=== PATIENT | male | born 1970 | race African-American/Black ===

== ENCOUNTER 2019-11-11 11:01 | Emergency (ER) | payer OTHER ==
--- NOTE | 2019-11-11 11:17 | ER Document Report ---
ED Medical Screen (RME) - General Chief Complaint: Dizziness Stated Complaint: DIZZINESS Time Seen by Provider: 11/11/19 11:13 Mode of Arrival: Ambulatory Information source: Patient Notes: Patient presents complaining of dizziness in which she feels off balance for the past 3 weeks. Patient states symptoms have been off and on. Patient denies any headache pain or chest pain symptoms. Patient denies any nausea or vomiting. Patient denies any significant underlying medical history. I have greeted and performed a rapid initial assessment of this patient. A comprehensive ED assessment and evaluation of the patient, analysis of test results and completion of the medical decision making process will be conducted by additional ED providers. - Related Data Allergies/Adverse Reactions: No Known Allergies Allergy (Verified 11/11/19 11:13) Physical Exam - Vital signs Vitals: Temp Pulse Resp BP Pulse Ox 98.4 F 92 18 143/92 H 95 11/11/19 11:05 11/11/19 11:05 11/11/19 11:05 11/11/19 11:05 11/11/19 11:05 - Neurological Neuro grossly intact: Yes Cognition: Normal [place] Coma Scale Eye Opening: Spontaneous [place] Coma Scale Verbal: Oriented [place] Coma Scale Motor: Obeys Commands [place] Coma Scale Total: 15 Course - Vital Signs Vital signs: Temp Pulse Resp BP Pulse Ox 98.4 F 92 18 143/92 H 95 11/11/19 11:05 11/11/19 11:05 11/11/19 11:05 11/11/19 11:05 11/11/19 11:05
[2019-11-11 11:43] LABS: ABSOLUTE BASOPHILS # (AUTO) 0.1 10^3/uL (0.0-0.2); ABSOLUTE EOSINOPHILS # (AUTO) 0.3 10^3/uL (0.0-0.6); ABSOLUTE MONOCYTES (AUTO) 0.4 10^3/uL (0.1-1.4); ABSOLUTE NEUT (AUTO) 3.7 10^3/uL (1.7-8.2); EOSINOPHILS % (AUTO) 5.6 % (0-6); HEMOGLOBIN 14.9 g/dL (13.5-17.0); LYMPHOCYTES % (AUTO) 18.5 % (13-45); MEAN CORPUSCULAR HEMOGLOBIN 30.1 pg (27.0-33.4); MEAN CORPUSCULAR HGB CONC 33.7 g/dL (32.0-36.0); MEAN CORPUSCULAR VOLUME 89 fl (80-97); MONOCYTES % (AUTO) 7.8 % (3-13); PLATELET COUNT 202 10^3/uL (150-450); RED BLOOD COUNT 4.94 10^6/uL (4.35-5.55); RED CELL DISTRIBUTION WIDTH 12.3 % (11.5-14.0); SEGMENTED NEUTROPHILS % (AUTO) 67.1 % (42-78); TOTAL CELLS COUNTED % (AUTO) 100 %; WHITE BLOOD COUNT 5.5 10^3/uL (4.0-10.5)
[2019-11-11 11:58] LABS: APPEARANCE,URINE CLEAR; BILIRUBIN,URINE NEGATIVE (NEGATIVE); COLOR,URINE YELLOW; GLUCOSE, URINE NEGATIVE (NEGATIVE); KETONES,URINE NEGATIVE (NEGATIVE); LEUKOCYTE ESTERASE,URINE NEGATIVE (NEGATIVE); NITRITE,URINE NEGATIVE (NEGATIVE); PROTEIN,URINE NEGATIVE (NEGATIVE); URINE SPECIFIC GRAVITY 1.017
[2019-11-11 12:07] LABS: ALBUMIN 4.4 g/dL (3.5-5.0); ALKALINE PHOSPHATASE 60 U/L (38-126); ANION GAP 8 (5-19); ASPARTATE AMINO TRANSFERASE 27 U/L (17-59); BILIRUBIN,DIRECT 0.2 mg/dL (0.0-0.4); BILIRUBIN,TOTAL 1.8 mg/dL (0.2-1.3); BLOOD UREA NITROGEN 17 mg/dL (7-20); CALCIUM 9.8 mg/dL (8.4-10.2); CARBON DIOXIDE 26 mmol/L (22-30); CHLORIDE 107 mmol/L (98-107); GLUCOSE 100 mg/dL (75-110); POTASSIUM 4.5 mmol/L (3.6-5.0); TOTAL PROTEIN 7.6 g/dL (6.3-8.2)
--- NOTE | 2019-11-11 15:12 | ER Document Report ---
ED Dizziness/Weakness - General Chief Complaint: Dizziness Stated Complaint: DIZZINESS Time Seen by Provider: 11/11/19 11:13 Mode of Arrival: Ambulatory Notes: HPI: 48-year-old male who presents today stating 2 to 3 weeks of some intermittent "off balance". Denies any headache, double or blurry vision, weakness or numbness, chest pain, palpitations, nausea, vomiting, fevers, tinnitus, recent upper respiratory tract infections, or history of this previously. No head trauma or neck pain. ROS: See HPI All other review of systems reviewed and otherwise negative Reviewed vital signs and nursing note as charted by RN. PHYSICAL EXAM: CONSTITUTIONAL: Alert and oriented and responds appropriately to questions. Well-appearing; well-nourished HEAD: Normocephalic; atraumatic EYES: PERRL; full extraocular range of motion; no nystagmus ENT: Normal nose; no rhinorrhea; moist mucous membranes; pharynx without lesions noted NECK: Supple without meningismus; no carotid bruit; non-tender; no cervical lymphadenopathy, no masses CARD: Regular rate and rhythm; no murmurs; symmetric distal pulses RESP: Normal chest excursion without splinting or tachypnea; breath sounds clear and equal bilaterally ABD/GI: Normal bowel sounds; non-distended; soft, non-tender BACK: The back appears normal and is non-tender to palpation EXT: Normal ROM in all joints; non-tender to palpation; no edema SKIN: No acute lesions noted NEURO: CN 2-12 intact; no obvious past-pointing; no nystagmus 5/5 bilateral upper and lower extremity strength with sensation intact to light touch; patient possibly has some slight hyperreflexia bilaterally. No weakness to the lower extremities. I got up with the patient and walked him around the room. I do not detect any obvious gait disturbance. Patient is able to do a standing squat without any obvious weakness. PSYCH: The patient's mood and manner are appropriate. Grooming and personal hygiene are appropriate. - Related Data Allergies/Adverse Reactions: No Known Allergies Allergy (Verified 11/11/19 11:13) Past Medical History - General Information source: Patient - Social History Smoking Status: Never Smoker Family History: Reviewed & Not Pertinent Patient has homicidal ideation: No Pulmonary Medical History: Reports: Hx Asthma - childhood GI Medical History: Reports: Hx Gastroesophageal Reflux Disease Physical Exam - Vital signs Vitals: Temp Pulse Resp BP Pulse Ox 98.4 F 92 18 143/92 H 95 11/11/19 11:05 11/11/19 11:05 11/11/19 11:05 11/11/19 11:05 11/11/19 11:05 Course - Re-evaluation Re-evalutation: Given the history and physical of mild gait disturbance, with no focal deficits currently, with no headaches or chest pain, will obtain cardiac panel, electrolyte evaluation, and obtain an MRI to evaluate for the possibility of a small posterior stroke. I do believe subarachnoid hemorrhage or infection to be unlikely. EKG shows a rate of 79, normal sinus rhythm, normal axis, no ST elevation or depression. 11/11/19 15:11 Measuring as recorded. No change in exam. 11/11/19 16:49 MRI as recorded. No change in exam. I was talking with the patient about discharge and he states now that he has had this progressively bilaterally worsening only to the lower extremities for "a few months". Patient states he has been to multiple emergency rooms. He states it is worsening. I walked the patient again and I do not detect any obvious weakness. Patient's initial exam did have some slight hyperreflexia. Patient states that he is uncomfortable going home. He states during all these visits he has never had an MRI of the spine. On back exam I do not detect any obvious swelling, erythema, or step- offs of the spine. I have called and spoken with the lab support service tech. I explained that I believe we need to do an MRI of the entire spine including the cervical, thoracic, and lumbar. 11/11/19 18:49 Extensive MRI imaging of the cervical, thoracic, and lumbar spine as recorded. Patient has had no recent infections or fever. Patient is walking with no apparent weakness. I do believe transverse myelitis, Guyon Faith, or other etiology currently to be unlikely. Patient will be discharged home with strict return precautions and follow-up with the primary care physician and neurologist. - Vital Signs Vital signs: Temp Pulse Resp BP Pulse Ox 97.8 F 58 L 14 144/87 H 100 11/11/19 17:20 11/11/19 17:20 11/11/19 17:20 11/11/19 17:20 11/11/19 17:20 - Laboratory Result Diagrams: 11/11/19 11:19 11/11/19 11:19 Laboratory results interpreted by me: 11/11/19 11/11/19 11:19 11:19 Total Bilirubin 1.8 H Urine Urobilinogen 2.0 H Discharge - Discharge Clinical Impression: Gait abnormality Condition: Good Disposition: HOME, SELF-CARE Additional Instructions: Come back immediately for any worsening gait disturbance, weakness, fever, swelling of the legs, back or chest pain, headache or blurry vision, or any other acute problems. Please follow-up with your primary care physician and possibly the neurologist that we have discussed. Prescriptions: Meclizine HCl 25 mg PO Q8H #12 tablet Referrals: NEUROLOGY [Provider Group] - Follow up as needed DERRICK FLORES MD [NO LOCAL MD] - Follow up as needed
--- NOTE | 2019-11-11 16:16 | RADIOLOGY REPORT (SQ) ---
EXAM DESCRIPTION: MRI HEAD WITHOUT IMAGES COMPLETED DATE/TIME: 11/11/2019 4:00 pm REASON FOR STUDY: 17; Vertigo like symptoms COMPARISON: None. TECHNIQUE: Multiplanar imaging includes non-contrasted T1, T2, FLAIR, and diffusion with ADC map seq uences. Images stored on PACS. LIMITATIONS: None. FINDINGS: ANATOMY: No anomalies. Normal vascular flow voids. Pituitary fossa normal. CSF SPACES: Normal in size and contour. No hemorrhage. CEREBRUM: Sulci and gyri normal in size and contour. Normal white matter signal on FLAIR imaging. No evidence of hemorrhage, mass, or extraaxial fluid collection. POSTERIOR FOSSA: No signal alteration. No hemorrhage. No edema, masses or mass effect. Internal miles tory canals, cerebello-pontine angles, mastoids normal. DIFFUSION IMAGING: Negative for acute or sub-acute infarction. ORBITS: No masses. Globes normal. PARANASAL SINUSES: No fluid levels. Mucosa normal. OTHER: No other significant finding. IMPRESSION: NORMAL MRI OF THE BRAIN WITHOUT INTRAVENOUS GADOLINIUM CONTRAST. EVIDENCE OF ACUTE STROKE: NO. TECHNICAL DOCUMENTATION: JOB ID: [id number] [employer]- All Rights Reserved Reading location - IP/workstation name: [id number]
--- NOTE | 2019-11-11 18:41 | RADIOLOGY REPORT (SQ) ---
EXAM DESCRIPTION: MRI LUMBAR SPINE WITHOUT IMAGES COMPLETED DATE/TIME: 11/11/2019 6:27 pm REASON FOR STUDY: 18; bilateral leg weakness COMPARISON: None. TECHNIQUE: Sagittal and Axial imaging includes T1, T2, STIR and gradient echo sequences. LIMITATIONS: None. FINDINGS: VISUALIZED UPPER ABDOMEN: Limited evaluation. No acute or suspicious findings suggested. SEGMENTATION: No transitional anatomy. The lowest well-developed disc space is labeled L5-S1. ALIGNMENT: Anatomic. VERTEBRAE: Intact. BONE MARROW: Normal. No marrow replacement or reactive changes. DISC SIGNAL: Normal. No significant abnormal signal or loss of height. POSTERIOR ELEMENTS: Generally intact. No pars defect evident. HARDWARE: None in the spine. CORD AND CONUS: Normal in size and signal intensity. Conus at the appropriate level. SOFT TISSUES: No aortic aneurysm seen. No bulky retroperitoneal adenopathy or mass. No paraspinal mas s or fluid. L1-L2: No significant spinal stenosis or exit foraminal stenosis. L2-L3: No significant spinal stenosis or exit foraminal stenosis. L3-L4: No significant spinal stenosis or exit foraminal stenosis. L4-L5: No significant spinal stenosis or exit foraminal stenosis. L5-S1: No significant spinal stenosis or exit foraminal stenosis. LOWER THORACIC: Incompletely imaged. No stenosis seen. SACRUM: Visualized upper sacrum intact. OTHER: No other significant findings. IMPRESSION: NORMAL MRI LUMBAR SPINE. TECHNICAL DOCUMENTATION: JOB ID: [id number] 2010 [employer] All Rights Reserved Reading location - IP/workstation name: [email or web address]
--- NOTE | 2019-11-11 18:44 | RADIOLOGY REPORT (SQ) ---
EXAM DESCRIPTION: MRI CERVICAL SPINE WITHOUT IMAGES COMPLETED DATE/TIME: 11/11/2019 6:27 pm REASON FOR STUDY: 17; bilateral leg weakness COMPARISON: None. TECHNIQUE: Sagittal and Axial imaging includes T1, T2, STIR and gradient echo sequences. LIMITATIONS: None. FINDINGS: ALIGNMENT: Normal. VERTEBRAE: Intact. BONE MARROW: Normal. No marrow replacement or reactive changes. DISCS: Diffuse decreased T2 weighted intervertebral disc signal HARDWARE: None in the spine. CORD AND BASE OF BRAIN: Normal in size and signal intensity. SOFT TISSUES: No soft tissue masses. C1-C2: No significant spinal stenosis. C2-C3: No significant central or foraminal stenosis. C3-C4: Minimal posterior disc bulging is present. No central stenosis. Mild bilateral foraminal grant rowing. C4-C5: No significant spinal stenosis or exit foraminal stenosis. C5-C6: Mild diffuse posterior disc bulging partially effaces the ventral thecal sac and abuts the sammy tral cord without cord flattening or abnormal intrinsic cord signal. Borderline central stenosis. H igh-grade right, moderate left foraminal narrowing from facet and uncovertebral hypertrophy C6-C7: No significant central or foraminal stenosis C7-T1: No significant central or foraminal stenosis UPPER THORACIC: Incompletely imaged. No significant spinal stenosis or exit foraminal stenosis. OTHER: No other significant finding. IMPRESSION: Degenerative disc changes most pronounced C5-6. No abnormal intrinsic cervical cord signal worrisome for edema or myelomalacia TECHNICAL DOCUMENTATION: JOB ID: [id number] 2010 [employer]- All Rights Reserved Reading location - IP/workstation name: [id number]
--- NOTE | 2019-11-11 18:44 | RADIOLOGY REPORT (SQ) ---
EXAM DESCRIPTION: MRI THORACIC SPINE WITHOUT IMAGES COMPLETED DATE/TIME: 11/11/2019 6:27 pm REASON FOR STUDY: 17; bilateral leg weakness COMPARISON: None. TECHNIQUE: Sagittal and Axial imaging includes T1, T2, STIR and gradient echo sequences. LIMITATIONS: None. FINDINGS: LOCALIZER: No worrisome findings. ALIGNMENT: Normal. VERTEBRAE: Intact. BONE MARROW: Normal. No marrow replacement or reactive changes. Incidental hemangioma in the T8 vert ebra. HARDWARE: None in the spine. CORD: Normal in size and signal intensity. SOFT TISSUES: No soft tissue masses. THORACIC DISCS T1-T12: No significant spinal stenosis or exit foraminal stenosis. LOWER CERVICAL: Incompletely imaged. No significant spinal stenosis or exit foraminal stenosis. UPPER LUMBAR: Incompletely imaged. No significant spinal stenosis or exit foraminal stenosis. OTHER: No other significant finding. IMPRESSION: NORMAL MRI THORACIC SPINE. TECHNICAL DOCUMENTATION: JOB ID: [id number] 2010 [employer]- All Rights Reserved Reading location - IP/workstation name: [email or web address]
[2019-11-11 19:05] VITALS: BP 137/82
--- NOTE | 2019-11-11 20:48 | EKG REPORT ---
SEVERITY:- NORMAL ECG - SINUS RHYTHM : Confirmed by: Kiesha Valdovinos MD 11-Nov-2019 20:48:25
== END 2019-11-11 19:06 | disposition home or self-care (01) ==
LOC: ER 11:01
DX: R26.9 Unspecified abnormalities of gait and mobility (principal); R42 Dizziness and giddiness
CPT/HCPCS: 36415; 70551; 72141; 72146; 72148; 80053; 81001; 85025; 93005; 93010; 99285